=== PATIENT | male | born 1935 | race Caucasian/White ===

== ENCOUNTER 2021-07-23 08:45 | Day surgery (SDC) | payer MEDICARE, BC ==
[2021-07-23] VITALS (17 sets, daily range): BP systolic 101–149; BP diastolic 35–78; PULSE 66–93; TEMP 97.4–98.2
[~2021-07-23] VITALS: Ht 167.6 cm; Wt 96.5 kg
[~2021-07-23 08:45] MED LIST: ASPIRIN 81M81 MG/TA2 PO; CARDURA XL4 MG PO; CYTOTEC200 MCG PO; FLEXERIL5 MG PO; IMDUR 30MG30 MG/TAB PO; LIPITOR20 MG PO; LOPRESSOR 225 MG/TAB PO; NITROSTAT0.4 MG/TAB SL; OCUVITE1 TA1 PO; PLAVIX 75MG TAB75 MG PO; PREDNISONE 5MG5 MG PO; PROTONIX 40MG T40 MG PO; TYLENOL 500MG500 MG PO
[2021-07-23 10:10] LABS: HEMATOCRIT 41.2 % (42.0-52.0); HEMOGLOBIN 13.6 g/dl (13.5-18.0); MEAN CELL VOLUME 103 fl (80.0-100.0); MEAN CORPUSCULAR HEMOGLOBIN 34 pg (27-31); MEAN CORPUSCULAR HGB CONC 33 g/dl (33.0-37.0); MEAN PLATELET VOLUME 9.4 fl (7.4-10.4); PLATELET COUNT 153 K/mm3 (130-400); RED BLOOD COUNT 4.02 M/mm3 (4.20-5.60)
[2021-07-23 10:18] LABS: PROTHROMBIN TIME 11.5 SECONDS (9.7-12.8)
[2021-07-23 10:20] LABS: PARTIAL THROMBOPLASTIN TIME 24.3 SECONDS (26.0-37.0)
[2021-07-23] MEDS ORDERED: ANTIVERT 25MG25 MG PO (10:23)
[2021-07-23] MEDS ORDERED: ULTRAM 50MG TAB50 MG PO (10:24)
[2021-07-23 10:29] LABS: CALCIUM 9.4 mg/dL (8.4-10.2); CREATININE, serum 1.59 mg/dL (0.72-1.25); POTASSIUM 3.8 mmol/L (3.5-4.5)
--- NOTE | 2021-07-23 11:10 | NUR ---
SEE MERGE FOR ALL MEDICATION ADMINISTRATION TIMES, INTRA AND POST SEDATION ASSESSMENTS
--- NOTE | 2021-07-23 12:09 | NUR ---
PT ADMITTED TO UNIT. POST-CATH VITALS INITIATED.
--- NOTE | 2021-07-23 14:26 | NUR ---
PT MED REC, ALLERGIES, AND ASSESSMENT COMPLETED. PT ORIENTED TO ROOM AND AT BEDSIDE. ABLE TO WITHSTAND LUNCH WITHOUT NAUSEA AT THIS TIME.
--- NOTE | 2021-07-23 15:21 | NUR ---
2 ML REMOVED FROM BAND AT THIS TIME. 11 TOTAL LEFT. NO BLEEDING NOTED AT THIS TIME.
--- NOTE | 2021-07-23 16:57 | NUR ---
REMOVED 2ML FROM BAND, 9 REMAINING. NO BLEEDING NOTED AT THIS TIME.
--- NOTE | 2021-07-23 17:59 | NUR ---
5ML REMOVED AT THIS TIME, NO BLEEDING NOTED. 4ML LEFT IN BAND
--- NOTE | 2021-07-23 18:46 | NUR ---
BAND TAKEN OFF AT THIS TIME. NO ACTIVE BLEEDING NOTED, COVERED WITH BANDAID. INSTRUCTED TO KEEP BRACE ON.
--- NOTE | 2021-07-23 18:47 | NUR ---
PT STILL EATING DINNER, 50% CREDIT GIVEN FOR FOOD ASSESSMENT.
--- NOTE | 2021-07-23 19:20 | NUR ---
NOTIFIED DR. LAGOS OF NEED FOR VTE PROPHYLAXIS. RECEIVED ORDER FOR SCDS.
--- NOTE | 2021-07-23 19:30 | NUR ---
PT IS SITTING UP IN BED FINISHING DINNER. RIGHT RADIAL SITE IS C/D/I WITH NO HEMATOMA. NO NEEDS AT THIS TIME.
--- NOTE | 2021-07-23 21:04 | NUR ---
SITE C/D/I. RADIAL COMPRESSION BAND WAS REMOVED BY RN BRITTANY DURING DAY SHIFT. DENIES PAIN
--- NOTE | 2021-07-23 22:23 | NUR ---
ASSESSMENT COMPLETED. RADIAL SITE IS C/D/I. BANDAID ON SITE, NO HEMATOMA OR BRUISING. PT DENIES PAIN. PT IS PLEASANT AND COOPERATIVE. CALL LIGHTIN REACH, NO OTHER NEEDS AT THIS TIME.
[2021-07-24] VITALS (7 sets, daily range): BP systolic 98–118; BP diastolic 59–68; PULSE 76–106; TEMP 97.6–98
--- NOTE | 2021-07-24 06:10 | NUR ---
PT HAD UNEVENTFUL NIGHT. RIGHT RADIAL SITE IS C/D/I. NO SIGNS OF HEMATOMA. PT COMPLAINED OF SOME NAUSEA, BUT STATED HE DID NOT WANT ANY MEDICATION AT THIS TIME. PT ALSO STATED WOULD LIKE SOME MEDICATION TO HELP HIM HAVE A BOWEL MOVEMENT, BUT WANTED TO WAIT TIL LATER TO TAKE IT. THIS RN WILL PASS MESSAGE TO DAY SHIFT TO GIVE DURING MORNING MED ROUNDS. CALL LIGHT IN REACH, NO OTHER NEEDS AT THIS TIME.
[2021-07-24 08:59] LABS: HEMATOCRIT 41.5 % (42.0-52.0); MEAN CELL VOLUME 100 fl (80.0-100.0); MEAN CORPUSCULAR HEMOGLOBIN 34 pg (27-31); MEAN CORPUSCULAR HGB CONC 34 g/dl (33.0-37.0); MEAN PLATELET VOLUME 9.8 fl (7.4-10.4); PLATELET COUNT 152 K/mm3 (130-400); RED BLOOD COUNT 4.17 M/mm3 (4.20-5.60); REDCELL DISTRIBUTION WIDTH-CV 12.3 % (11.5-14.5)
[2021-07-24 09:08] LABS: CALCIUM 9.3 mg/dL (8.4-10.2); CREATININE, serum 1.41 mg/dL (0.72-1.25); POTASSIUM 4.3 mmol/L (3.5-4.5)
--- NOTE | 2021-07-24 09:25 | NUR ---
LINDA met with the patient to discuss discharge plan. The patient lives in [place] with his , Kae (ph#[phone]). He reports independence with ADLs and has a cane. The patient's primary care provider is HEATHER Ware and he receives his medications from [facility]. The patient plans on returning home with his upon discharge. No additional needs at this time. *Discharge plan: home with *
--- NOTE | 2021-07-24 09:33 | NUR ---
PT HEART RATE TACHYCARDIC, RECHECKED RADIALLY AT THIS TIME, 106 BPM. PT DENIES CHEST PAIN, DIZZINESS, SOA. WILL CONTINUE TO MONITOR AND GIVE MEDICATIONS.
[2021-07-24] MEDS ORDERED: LIPITOR 80MG80 MG PO (10:31)
--- NOTE | 2021-07-24 10:57 | NUR ---
PT ALERT AND ORIENTED. PT LUNGS CLEAR TO AUSCULTATION. S1,S2 AUSCULTATED, PT SLIGHTLY TACHYCARDIC. PT RIGHT RADIAL SITE CLEAN, DRY, INTACT, BANDAID IN PLACE. PT PULSES 2+ IN ALL EXTREMITIES. PT EXPRESSES CONCERN WITH NEEDING BOWEL MOVEMENT, DISCUSSED WITH DR. OKEEFE WHILE IN ROOM, WILL TAKE HOME MEDICATION AFTER DISCHARGE. PT ABLE TO CALL FOR NEEDS, SITTING UP IN CHAIR, CALL LIGHT WITHIN REACH.
--- NOTE | 2021-07-24 11:38 | NUR ---
PT DISCHARGING, PT INT DISCONTINUED, EDUCATION AND HEALTH SUMMARY GIVEN TO BEST OF ABILITIES. ANSWERED QUESTIONS TO BEST OF ABILITY. DISCHARGE VITALS OBTAINED AND DIETARY TO TALK TO PT PRIOR TO LEAVING HOSPITAL.
== END 2021-07-24 11:49 | disposition home or self-care (01) ==
LOC: COL.CAR 08:45 → MEDICAL 12:42 → COL.CAR 07-24 11:49
PROVIDERS: Internal Medicine Cardiovascular Disease
DX: I25.10 Atherosclerotic heart disease of native coronary artery without angina pectoris (principal); I25.2 Old myocardial infarction; I10 Essential (primary) hypertension; E78.5 Hyperlipidemia, unspecified; M47.892 Other spondylosis, cervical region; Z79.899 Other long term (current) drug therapy; Z79.82 Long term (current) use of aspirin; Z79.02 Long term (current) use of antithrombotics/antiplatelets; Z87.891 Personal history of nicotine dependence
CPT/HCPCS: OP; C1769; C1874; C1887; C9600; J0583; J1644; J2250; J3010; J7512; Q9967

== ENCOUNTER 2022-10-21 08:06 | Day surgery (SDC) | payer MEDICARE, BC ==
[~2022-10-21] VITALS: Ht 167.7 cm; Wt 68.4 kg
[~2022-10-21 08:06] MED LIST changes: +ANTIVERT 25MG25 MG PO; +LIPITOR 80MG80 MG PO; +ULTRAM 50MG TAB50 MG PO
--- NOTE | 2022-10-21 08:40 | NUR ---
Pt arrived ambuatory to [facility] accompanied by and nephew. Pt is alert, oriented. initially states pt took AM meds and then threw them up. Pt states he doesn't think he vomited pills up, as he was just dry heeving. He reports upper mid/left sided abd pain since yesterday and dark stools, poor appetite and nausea. He has hx of bleeding ulcer and states he feels similar to this. Dr Martin is notified of pt's symptoms.
[2022-10-21 08:54] VITALS: BP 131/81; PULSE 84; TEMP 97.8
[2022-10-21 09:05] LABS: HEMATOCRIT 39.4 % (42.0-52.0); HEMOGLOBIN 13.2 g/dl (13.5-18.0); MEAN CELL VOLUME 102 fl (80.0-100.0); MEAN CORPUSCULAR HEMOGLOBIN 34 pg (27-31); MEAN CORPUSCULAR HGB CONC 34 g/dl (33.0-37.0); MEAN PLATELET VOLUME 9.7 fl (7.4-10.4); PLATELET COUNT 153 K/mm3 (130-400); RED BLOOD COUNT 3.86 M/mm3 (4.20-5.60); REDCELL DISTRIBUTION WIDTH-CV 12.7 % (11.5-14.5)
--- NOTE | 2022-10-21 09:09 | NUR ---
AFTER SPEAKING WITH PT DR. CARLIN HAS DECIDED TO CANCEL HEART CATH PROCEDURE. IV PEPCID WILL BE GIVEN AND PT TO BE DISCHARGED
[2022-10-21 09:18] LABS: CALCIUM 9.6 mg/dL (8.4-10.2); CREATININE, serum 1.52 mg/dL (0.72-1.25); POTASSIUM 4.2 mmol/L (3.5-4.5)
[2022-10-21] MEDS ORDERED: IMDUR 30MG30 MG/TAB PO (10:31)
[2022-10-21] MEDS ORDERED: PROTONIX 40MG T40 MG PO (10:32)
--- NOTE | 2022-10-21 11:00 | NUR ---
DISCUSSED DISCHARGES WITH PATIENT. IV DC'D PT DRESSED. TAKEN DOWN TO ENTRANCE WITH FAMILY BY STONEY GONZALEZ
== END 2022-10-21 11:00 | disposition home or self-care (01) ==
LOC: COL.CAR 08:06
PROVIDERS: Internal Medicine Cardiovascular Disease
DX: I25.10 Atherosclerotic heart disease of native coronary artery without angina pectoris (principal); R94.39 Abnormal result of other cardiovascular function study; Z53.8 Procedure and treatment not carried out for other reasons